=== PATIENT | male | born 1965 | race Caucasian/White ===

== ENCOUNTER 2016-09-06 19:34 | Emergency (ER) | payer MEDICARE ==
[~2016-09-06] VITALS: Ht 182.9 cm; Wt 93.0 kg
[~2016-09-06 19:34] MED LIST: CITA10SO PO; CYMB30CA PO
[2016-09-06 19:35] VITALS: BP 140/81; PULSE 67; RESP 16; TEMP 98; O2SAT 99
[2016-09-06] MEDS ORDERED: IBUP800T23 PO (20:09)
[2016-09-06] MEDS ORDERED: CYCL1TAB29 PO (20:09)
--- NOTE | 2016-09-06 20:10 | PD ---
HPI Chief Complaint: Back/ Neck Pain or Injury Time Seen by Provider: 20:05 Travel History International Travel<30 days: No Contact w/Intl Traveler<30days: No Traveled to known affect area: No History of Present Illness HPI Patient is a 50-year-old male presenting to the emergency department for evaluation of left lower back pain that radiates down the back of his left leg. Patient states the pain is been ongoing for 3-4 days, he has taken acetaminophen with no relief of his symptoms. He denies any bladder or bowel incontinence, no saddle paresthesia, no weakness or numbness in his extremities. He denies any injury or trauma, he states he woke up with the back pain one morning. PFSH Past Medical History Depression: Yes Diminished Hearing: No Tetanus Vaccination: Unknown Influenza Vaccination: No Past Surgical History Other Surgery: Yes (RT SHOULDER/ELBOX SX) Social History Alcohol Use: No Tobacco Use: Yes (10 CIG DAILY) Substance Use: No Allergies-Medications (Allergen,Severity, Reaction): Coded Allergies: Naproxen (Verified Adverse Reaction, Severe, SOB-SWELLING, 09/06/16) Reported Meds & Prescriptions Reported Meds & Active Scripts Active Active Prescriptions or Reported Medications Unobtainable Review of Systems Except as stated in HPI: all other systems reviewed are Neg Musculoskeletal: Positive: Myalgias, Cramping, Pain Neurologic: No: Focal Abnormalities, Sensory Disturbance Physical Exam Narrative GENERAL: Well-nourished, well-developed patient. SKIN: Focused skin assessment warm/dry. HEAD: Normocephalic. EYES: No scleral icterus. No injection or drainage. NECK: Supple, trachea midline. No JVD or lymphadenopathy. CARDIOVASCULAR: Regular rate and rhythm without murmurs, gallops, or rubs. RESPIRATORY: Breath sounds equal bilaterally. No accessory muscle use. GASTROINTESTINAL: Abdomen soft, non-tender, nondistended. MUSCULOSKELETAL: No cyanosis, or edema. 5 out of 5 muscle strength in bilateral lower extremities, tenderness to palpation in left paraspinal musculature in the lumbar region. No focal tenderness noted over lumbar spine. BACK: Nontender without obvious deformity. No CVA tenderness. Data Data Last Documented VS Vital Signs Date Time Temp Pulse Resp B/P Pulse Ox O2 Delivery O2 Flow Rate FiO2 09/06/16 19:35 98.0 67 16 140/81 99 MDM Medical Decision Making Medical Screen Exam Complete: Yes Emergency Medical Condition: Yes Interpretation(s) Vital Signs Date Time Temp Pulse Resp B/P Pulse Ox O2 Delivery O2 Flow Rate FiO2 09/06/16 19:35 98.0 67 16 140/81 99 Differential Diagnosis Spasm versus strain versus discogenic pain versus other Narrative Course Patient's 50 all male presenting to emergency department for evaluation of left lower back pain that started 3-4 days ago with no preceding injury or trauma. Patient is neurologically intact. Physical examination appears most consistent with muscle spasm, sciatica. Patient reports an allergy to naproxen but can take ibuprofen with no allergic reaction. Patient will be provided with a prescription for ibuprofen as well as a muscle relaxer. He is encouraged to apply warm moist heat to the affected area, continue range of motion exercises, avoid bed rest and avoid exacerbating activities. He was encouraged to follow- up with his primary care provider. He was advised to return to emergency department for any new or worsening symptoms. Patient verbalizes understanding of these instructions. Patient is stable for discharge. Diagnosis Primary Impression: Sciatica Qualified Code: M54.32 - Sciatica of left side Additional Impression: Spasm of lumbar paraspinous muscle Referrals: Primary Care Physician Patient Instructions: General Instructions, Muscle Spasm (ED), Muscle Strain ( DC), Sciatica (ED) Additional Instructions: Apply warm moist heat to the affected area, continue range of motion exercises, avoid exacerbating activities, avoid bed rest Take medications as directed Follow-up with your primary care provider or at the [facility] Return to emergency department for any new or worsening symptoms Flexeril may make you drowsy, do not drive or operate machinery until you know how you react to this medication Med/Other Pt SpecificInfo: Prescription(s) given Scripts Cyclobenzaprine (Flexeril)10 Mg Tab10 Mg PO TID PRN (MUSCLE SPASM) 10 Days Ref 0 Prov:Xiomara Stafford 09/06/16 Ibuprofen 800 Mg [id number] Mg PO Q6HR PRN (PAIN) #40 TAB Ref 0 Prov:Xiomara Stafford 09/06/16 Disposition: 01 DISCHARGE HOME Condition: Stable Xiomara Stafford Sep 06, 2016 20:10
[2016-09-06] MEDS ORDERED: DULO1CAP PO (20:11)
== END 2016-09-06 20:29 | disposition home or self-care (01) ==
LOC: NEPK 19:34
DX: M54.32 Sciatica, left side (principal); M62.830 Muscle spasm of back; F17.210 Nicotine dependence, cigarettes, uncomplicated
CPT/HCPCS: 99283